=== PATIENT | male | born 1930 | race Caucasian/White ===

== ENCOUNTER 2018-01-01 18:00 | Emergency (ER) | payer MEDICARE ==
[~2018-01-01] VITALS: Ht 182.9 cm; Wt 102.1 kg
[~2018-01-01 18:00] MED LIST: ASPIRIN81 M3 PO; MULTIVITAMINS1 EAC8 PO; POTASSIUM40 MEQ/11 PO; Z.0.FLOMAX0.4 MG PO; Z.0.HYDROCHLOROTHIA2 PO; Z.0.LISINOPRIL40 MG PO; Z.0.METOPROLOL TART5 PO
[2018-01-01 18:35] LABS: BASOPHILS % 0.3 % (0.0-1.0); EOSINOPHILS # (AUTO) 0.7 (0.0-0.4); EOSINOPHILS % 7.3 % (0.0-6.0); HEMATOCRIT 41.3 % (38.2-49.6); HEMOGLOBIN 14.1 g/dL (14.0-18.0); LYMPHOCYTES % 22.6 % (18.0-39.1); MEAN CORPUSCULAR HEMOGLOBIN 32.1 pg (28-32); MEAN CORPUSCULAR HGB CONC 34.1 g/dL (31-35); MEAN CORPUSCULAR VOLUME 94.1 fL (81-99); MONOCYTES % 11.5 % (4.4-11.3); NEUTROPHILS # (AUTO) 5.2 (2.1-6.9); NEUTROPHILS % 58.1 % (38.7-80.0); PLATELET COUNT 250 x10e3/uL (140-360); RED BLOOD COUNT 4.39 x10e6/uL (4.3-5.7); RED CELL DISTRIBUTION WIDTH 13.2 % (11.7-14.4)
[2018-01-01 18:39] LABS: INR 1.05; PROTHROMBIN TIME 12.9 seconds (11.9-14.5)
[2018-01-01 18:40] LABS: PARTIAL THROMBOPLASTIN TIME 27.8 seconds (23.8-35.5)
[2018-01-01 18:49] LABS: ALANINE AMINOTRANSFERASE 17 IU/L (0-55); ALBUMIN 3.8 g/dL (3.5-5.0); ALKALINE PHOSPHATASE 65 IU/L (40-150); ANION GAP 12.5 mmol/L (8-16); BLOOD UREA NITROGEN 25 mg/dL (7-26); BUN/CREATININE RATIO 21 (6-25); CARBON DIOXIDE 32 mmol/L (22-29); CHLORIDE 98 mmol/L (98-107); CREATINE KINASE 72 IU/L (30-200); CREATININE, SERUM 1.21 mg/dL (0.72-1.25); EST GLOMERULAR FILTRATION RATE 57 ML/MIN (60-); GLUCOSE 106 mg/dL (74-118); POTASSIUM 3.5 mmol/L (3.5-5.1); SODIUM 139 mmol/L (136-145)
--- NOTE | 2018-01-01 19:31 | Diagnostic Imaging Report ---
EXAM: XR CHEST 1 VIEW DATE: 01/01/2018 6:24 PM INDICATION: Shortness of breath COMPARISON: None FINDINGS: Lines and Tubes: None Heart and Mediastinum: No acute cardiomediastinal findings. Tortuous descending aorta. Lungs and Pleura: Basilar opacities, asymmetric to the left. Bones and Soft Tissues: No acute findings. IMPRESSION: 1. Ill-defined basilar opacities could represent atelectasis or infectious process. Signed by: Dr. Hector Alberto MD on 01/01/2018 7:27 PM
[2018-01-01 20:00] LABS: BILIRUBIN,URINE NEGATIVE (NEGATIVE); CLARITY,URINE CLEAR (CLEAR); COLOR,URINE YELLOW (YELLOW); KETONES,URINE NEGATIVE (NEGATIVE); LEUKOCYTE ESTERASE ,URINE TRACE (NEGATIVE); NITRITE,URINE NEGATIVE (NEGATIVE); PROTEIN,URINE DIPSTICK NEGATIVE (NEGATIVE); RBC,URINE 0-5 /HPF (0-5); URINE UROBILINOGEN 0.2 mg/dL (0.2 - 1); WBC,URINE (MAN) 0-5 /HPF (0-5)
[2018-01-01 20:01] LABS: MUCUS,URINE FEW (RARE)
--- NOTE | 2018-01-01 21:41 | Diagnostic Imaging Report ---
EXAM: CT Chest WITHOUT contrast 01/01/2018 8:37 PM INDICATION: Evaluation for pneumonia. COMPARISON: None TECHNIQUE: Chest was scanned utilizing a multidetector helical scanner from the lung apex through the level of the adrenal glands without administration of IV contrast. Absence of intravenous contrast decreases sensitivity for detection of lymphadenopathy and vascular pathology. Coronal and sagittal reformations were obtained. Routine protocol was performed. IV CONTRAST: None RADIATION DOSE: Total DLP: 635.67 mGy*cm Estimated effective dose: (DLP x 0.014 x size factor) mSv COMPLICATIONS: None FINDINGS: LINES/ TUBES: None. LUNGS AND AIRWAYS: The lungs are unremarkable. Airways are normal. PLEURA: The pleural spaces are clear. HEART AND MEDIASTINUM: The thyroid gland is normal. No mediastinal, hilar or axillary lymphadenopathy. Single calcified lymph node in the left hilar region. The heart is normal in size.. There is no pericardial effusion. There are mild atherosclerotic calcifications in the aorta and coronary arteries. UPPER ABDOMEN: Limited non-contrast views of the upper abdomen show no abnormality within the visualized liver, spleen, pancreas, or kidneys. The adrenal glands are normal. BONES: There are moderate degenerative changes in the thoracic spine. SOFT TISSUES: Unremarkable. IMPRESSION: 1. No evidence of pneumonia or other acute intrathoracic abnormality. 2. Mild coronary artery disease. Signed by: Dr. Ck Gutierrez M.D. on 01/01/2018 9:38 PM
[2018-01-01] MEDS ORDERED: ALBUTEROL/IPRATROPIUM 3 ML NEB NEB ONE (22:00)
[2018-01-01 22:15] VITALS: BP 166/84
== END 2018-01-01 22:33 | disposition home or self-care (01) ==
LOC: ER 18:00
DX: R06.00 Dyspnea, unspecified (principal); J20.9 Acute bronchitis, unspecified; J44.9 Chronic obstructive pulmonary disease, unspecified; I10 Essential (primary) hypertension; Z87.891 Personal history of nicotine dependence
CPT/HCPCS: 36415; 71045; 71250; 80053; 81001; 82550; 82553; 83880; 84484; 85025; 85610; 85730; 93005; 99284

== ENCOUNTER → 2018-01-08 | Outpatient (CLI) | payer MEDICARE ==
--- NOTE | 2018-01-08 19:27 | Diagnostic Imaging Report ---
EXAM: VENTILATION PERFUSION LUNG SCAN INDICATION: 87 M with COPD and worsening SOB COMPARISON: CT chest 01/01/2018; chest radiograph 01/01/2018 DISCUSSION: Xenon-133 gas 19.8 mCi was administered via inhalation. Dynamic images of the lungs in the posterior projection were obtained through single breath and washout phases. Distribution of tracer activity is mildly irregular throughout the lungs. Washout is diffusely delayed with bibasilar air trapping. Perfusion images of the lungs in multiple projections were obtained following intravenous administration of 6.3 mCi of Tc-99m MAA. Distribution of tracer is very irregular throughout the lungs. There are no segmental perfusion defects of any size but extensive nonsegmental perfusion abnormalities are present bilaterally, greater in the lower lobes. The contours of the lungs are well demarcated. The cardiac silhouette is unremarkable. IMPRESSION: 1. Scan findings represent a LOW probability for acute pulmonary embolic disease based on the PIOPED II criteria. 2. Scan findings are compatible with extensive diffuse parenchymal and/or obstructive lung disease. Signed by: Dr. Terese Luz M.D. on 01/08/2018 7:23 PM
== END | disposition home or self-care (01) ==
LOC: NM 13:42
PROVIDERS: ATTEND Internal Medicine Pulmonary Disease
DX: J44.9 Chronic obstructive pulmonary disease, unspecified (principal); M05.40 Rheumatoid myopathy with rheumatoid arthritis of unspecified site; I10 Essential (primary) hypertension; I65.29 Occlusion and stenosis of unspecified carotid artery; L03.90 Cellulitis, unspecified; R55 Syncope and collapse; R60.9 Edema, unspecified; Z87.891 Personal history of nicotine dependence; I25.10 Atherosclerotic heart disease of native coronary artery without angina pectoris
CPT/HCPCS: 78582; A9540; A9558

== ENCOUNTER 2019-03-11 14:05 | Outpatient (RCR) | payer MEDICARE | END 2019-03-26 | LOC: RESP 14:05 | PROVIDERS: ATTEND Internal Medicine Pulmonary Disease | DX: J44.9 Chronic obstructive pulmonary disease, unspecified (principal) ==